=== PATIENT | female | born 1985 | race Two or more races ===

== ENCOUNTER 2019-05-14 18:27 | Emergency (ER) | payer MEDICAID, OTHER ==
[~2019-05-14] VITALS: Ht 149.9 cm; Wt 49.9 kg
--- NOTE | 2019-05-14 18:31 | NUR ---
PT BIB SELF C/O NAUSEA AND VOMITING FOR MONTHS, WORST X 3 DAYS, ALSO C/O GENERALIZED BODY ACHES, PT IS AAOX4, NOT IN RESPIRATORY DISTRESS, HOOKED TO MONITOR, KEPT RESTED AND COMFORTABLE, AWAITING ER MD FOR EVAL.
[2019-05-14] MEDS ORDERED: ONDANSETRON 4 MG TAB.RAPDIS ONE (19:07)
[2019-05-14 19:14] LABS: BASOPHILS # (AUTO) 0.1 /CMM (0.0-0.2); BASOPHILS % (AUTO) 0.7 % (0.0-2.0); EOSINOPHILS % (AUTO) 2.4 % (0.0-6.0); HEMATOCRIT 43 % (33-45); HEMOGLOBIN 14.2 g/dL (11.5-14.8); LYMPHOCYTES # (AUTO) 2.9 /CMM (0.8-4.8); LYMPHOCYTES % (AUTO) 31.1 % (20.0-44.0); MEAN CORPUSCULAR HGB CONC 33 g/dl (31.0-36.0); MEAN CORPUSCULAR VOLUME 92 fL (82-100); MONOCYTES # (AUTO) 0.7 /CMM (0.1-1.30); NEUTROPHILS # (AUTO) 5.4 /CMM (1.8-8.9); NEUTROPHILS % (AUTO) 57.8 % (43.0-81.0); PLATELET COUNT (AUTO) 326 /CMM (150-450); RED BLOOD CELL COUNT(AUTO) 4.66 MIL/uL (4.0-5.2); WHITE BLOOD COUNT (AUTO) 9.3 K/uL (4.3-11.0)
--- NOTE | 2019-05-14 19:15 | NUR ---
REPORT REC'D FROM CAMILO JIMENEZ FOR [facility].
--- NOTE | 2019-05-14 19:16 | NUR ---
Magaly NGUYEN PA-C IS AT THE BEDSIDE EVALUATING THE PT.
[2019-05-14 19:27] LABS: APPEARANCE,URINE Clear (CLEAR); BILIRUBIN,URINE SMALL (NEGATIVE); BLOOD, URINE Negative Ery/uL (NEGATIVE); COLOR,URINE Yellow (YELLOW); KETONES,URINE Negative (NEGATIVE); LEUKOCYTE ESTERASE ,URINE Negative (NEGATIVE); NITRITE, URINE Negative (NEGATIVE); PROTEIN,URINE Trace mg/dl (NEGATIVE); UGLUCOSE Negative (NEGATIVE)
[2019-05-14 19:28] LABS: CALCIUM, SERUM 9.7 mg/dL (8.5-10.1); CREATININE 0.7 mg/dL (0.6-1.3); POTASSIUM 3.1 mmol/L (3.5-5.1)
[2019-05-14] MEDS ORDERED: METOCLOPRAMIDE HCL 10 MG/2 ML VIAL IV ONE (19:30)
[2019-05-14] MEDS ORDERED: diphenhydrAMINE HCL 50 MG/ML VIAL ONE (19:30)
[2019-05-14] MEDS ORDERED: ONDANSETRON 4 MG TAB.RAPDIS SL ONE (19:30)
[2019-05-14] MEDS ORDERED: IV NS 0.9% 1,000 ML BAG IV ONE (19:30)
[2019-05-14] MEDS ORDERED: METOCLOPRAMIDE HCL 10 MG/2 ML VIAL ONE (19:30)
[2019-05-14] MEDS ORDERED: diphenhydrAMINE HCL 50 MG/ML VIAL IV ONE (19:30)
[2019-05-14] MEDS ORDERED: KETOROLAC TROMETHAMINE INJ 30 MG/ML VIAL IV ONE (19:30)
[2019-05-14] MEDS ORDERED: KETOROLAC TROMETHAMINE INJ 30 MG/ML VIAL ONE (19:30)
--- NOTE | 2019-05-14 19:31 | NUR ---
US TECH ARRIVED.
--- NOTE | 2019-05-14 19:31 | NUR ---
PT'S SISTER IS TAKING PT'S CHILDREN HOME. PT BROUGHT HER INFANT TO HER SISTER'S CAR AND WAS PUTTING IN THE CAR SEAT.
--- NOTE | 2019-05-14 19:32 | NUR ---
PT ARRIVED AND IV INSERTION ATTEMPTED IN LAC UNSUCCESSFULLY.
[2019-05-14 19:33] LABS: BACTERIA,URINE Rare /HPF (None Seen); RBC,URINE NONE SEEN /HPF (0-2); SQUAMOUS EPITHELIAL CELL,UR Few /HPF (None Seen); WBC,URINE 0-2 /HPF (0-3)
[2019-05-14 19:34] LABS: ALBUMIN 4.5 g/dL (3.4-5.0); BILIRUBIN,DIRECT 0.1 mg/dL (0.0-0.2); BILIRUBIN,TOTAL 0.7 mg/dL (0.2-1.0); TOTAL PROTEIN, SERUM 8.5 g/dL (6.4-8.2)
--- NOTE | 2019-05-14 19:35 | NUR ---
20G IV STARTED IN LT WRIST. US TECH STARTED.
[2019-05-14] MEDS ORDERED: POTASSIUM CHLORIDE 20 MEQ TAB.PRT.SR PO ONE ×2 (20:30→20:34)
--- NOTE | 2019-05-14 20:38 | NUR ---
PO CHALLENGE DONE AND PT TOLERATED PO WELL.
--- NOTE | 2019-05-14 20:45 | NUR ---
Patient discharged to home in stable condition. Written and verbal after care instructions given. Patient verbalizes understanding of instruction AND RX. IV removed. Catheter intact and site benign. Pressure and 4x4 applied to site. No bleeding noted. VSS. NAD NOTED. PT AMBULATED OUT WITH A STEADY GAIT.
[2019-05-14 20:47] VITALS: BP 115/79
== END 2019-05-14 20:47 | disposition home or self-care (01) ==
LOC: ER 18:27
DX: R11.2 Nausea with vomiting, unspecified (principal); R10.9 Unspecified abdominal pain; F12.10 Cannabis abuse, uncomplicated; F17.210 Nicotine dependence, cigarettes, uncomplicated; Z98.890 Other specified postprocedural states
CPT/HCPCS: 36415; 76705; 80048; 80076; 81001; 84703; 85025; 96361; 96374; 96375; 99284; 99406; J1200; J1885; J2765; J7030; Q0162; 81000-TC